=== PATIENT | female | born 1995 | race Caucasian/White ===

== ENCOUNTER 2022-02-07 03:15 | Emergency (ER) | payer OTHER ==
[2022-02-07 03:41] VITALS: BP 101/70; PULSE 85; RESP 18; TEMP 98.1; BMI 23.6
[2022-02-07 05:34] LABS: EPI CELLS 28 /uL (0-25.1); HYALINE CASTS 4 /uL (0-3.1); URINE APPEARANCE CLEAR; URINE BACTERIA 495 /uL (0-1359); URINE BILIRUBIN NEGATIVE (NEGATIVE); URINE COLOR YELLOW; URINE GLUCOSE (UA) NEGATIVE (NEGATIVE); URINE KETONE TRACE (NEGATIVE); URINE LEUK ESTERASE 3+ (NEGATIVE); URINE NITRITE NEGATIVE (NEGATIVE); URINE PROTEIN NEGATIVE (NEGATIVE); URINE UROBILINOGEN 0.2 mg/dL (0.2-1.0); URINE WBC 301 /uL (0-25.8)
[2022-02-07] MEDS ORDERED: DOXYCYCLINE HYCLATE 100 MG CAPSULE PO ONE ×2 (06:03→06:21)
[2022-02-07] MEDS ORDERED: cefTRIAXone SODIUM 1 GM VIAL ONE (06:22)
[2022-02-07 07:12] LABS: SYPHILIS W/ RPR CONF NON-REACTIVE (NONREACTIVE)
[2022-02-07 07:41] LABS: HIV INTERPRETATION NEGATIVE (NEGATIVE)
[2022-02-07 12:11] LABS: URINE RBC 113.4 /uL (0-23.9)
== END 2022-02-07 06:33 | disposition home or self-care (01) ==
LOC: JER 03:15
PROC: 3E023GC Introduction of Other Therapeutic Substance into Muscle, Percutaneous Approach (ICD-10-PCS; principal; 2022-02-07)
DX: N39.0 Urinary tract infection, site not specified (principal)
CPT/HCPCS: 36415; 81003; 84703; 86780; 87086; 87389; 99284-25

== ENCOUNTER 2023-05-07 05:56 | Emergency (ER) | payer OTHER ==
[2023-05-07 06:03] VITALS: BP 115/78; PULSE 60; RESP 18; TEMP 97.8; BMI 20.7
[2023-05-07] MEDS ORDERED: KETOROLAC TROMETHAMINE 30 MG/1 ML VIAL ONE (06:27)
[2023-05-07] MEDS ORDERED: DEXAMETHASONE SOD PHOSPHATE 10 MG/1 ML VIAL ONE (06:27)
[2023-05-07] MEDS: KETOROLAC TROMETHAMINE 30 MG/1 ML VIAL IM ONE (06:35)
[2023-05-07] MEDS: DEXAMETHASONE SOD PHOSPHATE 10 MG/1 ML VIAL PO ONE (06:35)
== END 2023-05-07 06:48 | disposition home or self-care (01) ==
LOC: JER 05:56
PROC: 3E0233Z Introduction of Anti-inflammatory into Muscle, Percutaneous Approach (ICD-10-PCS; principal; 2023-05-07)
DX: H92.02 Otalgia, left ear (principal); H66.92 Otitis media, unspecified, left ear
CPT/HCPCS: 96372; 99284-25; J1100